=== PATIENT | male | born 1995 | race Caucasian/White ===

== ENCOUNTER → 2025-03-04 | Outpatient (CLI) | payer SELFPAY ==
--- NOTE | 2025-03-04 07:33 | MRI_ITS ---
PROCEDURE: LOWER EXT JOINT ONLY (ROUTINE) 03/04/2025 REASON FOR EXAM: PAIN, EVAL LCL / LM TECHNIQUE: Procedure Code: MRILEJ Modality: MR Procedure: LOWER EXT JOINT ONLY (ROUTINE) Multiplanar and multisequence images were obtained without IV contrast administration. COMPARISON: COMPARISON : None FINDINGS: Bone Marrow: There is a 2.2 x 0.9 cm developing osteochondral defect in the central portion of the lateral femoral condyle with no free fragment, with marrow edema throughout the lateral femoral condyle. There is subcortical edema in the medial tibial plateau and medial femoral condyle. Cruciate ligaments: There is increased T2 signal, with edema and attenuation throughout the anterior cruciate ligament without laxity, grade 2 sprain. The posterior cruciate appears intact. Collateral ligaments: The medial collateral ligament appears intact. The lateral collateral ligament complex appears intact. The extensor compartment. The distal quadriceps and patellar tendons appear intact. Menisci. There is no tear identified in the medial or lateral meniscus. Effusion: There is a trace joint effusion. There is no [place]'s cyst. There is no soft tissue mass or adenopathy. MRI/Lower Ext Joint Only (Routine) IMPRESSION: There is a 2.2 x 0.9 cm developing osteochondral defect in the central portion of the lateral femoral condyle with no free fragment, with marrow edema throughout the lateral femoral condyle. There is subcortical edema in the medial tibial plateau and medial femoral cond yle. There is increased T2 signal, with edema and attenuation throughout the anterio r cruciate ligament without laxity, grade 2 sprain. There is a trace joint effusion. Reading Location: [facility]
--- OUTSIDE RECORDS SUMMARY | 2025-03-04 07:54 | XMS RPT_ITS | CCD ---
Author Organization [facility] Care Team Providers Care Blanchard Grinder Operator Name Role Phone CÉSAR HOWELL Unavailable Unavailable TA MATOS Unavailable Unavailable CÉSAR HOWELL Unavailable Unavailable TA MATOS Unavailable Unavailable Unavailable Primary Care Provider UnavailISA Peña Attending Unavailable SELF Referring Unavailable Lamine Fraga Attending Unavailable Ta Matos Referring Unavailable Ta Matos Primary Care Unavailable Kenji Dubon Attending Unavailable Ta Matos Primary Care Unavailable Lamine Fraga Referring Unavailable Lamine Fraga Attending Unavailable Ta Matos Primary Care Unavailable Allergies Allergy Classification Reported Allergen(s) Allergy Type Date of Onset Reaction(s) Facility (3 sources) penicillin; Translations: [PENICILLIN G] Drug Allergy 5 Rash [facility] Repository (2 sources) OTHER; Translations: [OTHER] Propensity to adverse reactions (disorder) 7 [facility] Repository (1 source) environmental [Other] Propensity to adverse reactions 7 [facility] Work Phone: Medications Current Medications Medication Drug Class(es) Dates Sig (Normalized) Sig (Original) azithromycin 250 mg oral tablet (1 source) Macrolide Antimicrobial Start: 12-17-2024 azithromycin (ZITHROMAX) 250 mg tablet TAKE 2 TABLETS BY MOUTH ON DAY 1, AND THEN TAKE 1 TABLET BY MOUTH ONCE A DAY ON DAY 2 THROUGH DAY 5 12/17/2024 Active escitalopram 5 mg oral tablet (1 source) Serotonin Reuptake Inhibitor Start: 12-06-2024 take 1 tablet by mouth once daily escitalopram oxalate (LEXAPRO) 5 mg tablet Take 1 tablet by mouth once daily. 12/06/2024 Active lidocaine hydrochloride 20 mg/ml mucous membrane topical solution (1 source) Antiarrhythmic, Amide Local Anesthetic Start: 08-30-2015 lidocaine viscous (LIDOCAINE VISCOUS) 2 % solution Indications: Sore throat Gargle and spit 10-15mLs every 3-4 hours as need for throat discomfort. 120 mL 0 08/30/2015 Active loratadine 10 mg oral tablet (1 source) take 1 tablet by mouth once daily loratadine (CLARITIN) 10 mg tablet Take 10 mg by mouth once daily. Active Problems Active Problems Problem Classification Problem Date Documented Da te Episodic/Chronic Other non-traumatic joint disorders (1 source) Pain in right knee; Translations: [Pain in right knee] Onset: 02-27-2025 Episodic Sprains and strains (1 source) Sprain of lateral collateral ligament of right knee, initial encounter; Translations: [Sprain of lateral collateral ligament of right knee, initial encounter] Onset: 02-27-2025 Episodic Viral infection (2 sources) Verruca vulgaris; Translations: [Viral wart, unspecified] Onset: 12-20-2024 12-20-2024 Episodic Past or Other Problems Problem Classification Problem Date Documented Da te Episodic/Chronic Fracture of lower limb (2 sources) Nondisplaced fracture of medial malleolus of left tibia, initial encounter for closed fracture; Translations: [Closed fracture of medial malleolus of left distal tibia] Onset: 06-25-2017 07-01-2017 Episodic Results Test Name Value Interpretation Reference Range Facility Inital Evaluation (1) - PTon 02-27-2025 Inital Evaluation (1) - PT [facility] [address] [place] [address] [address] [place] [id number] / REHABILITATION SERVICES INITIAL EVALUATION MR#: [id number] Acct: [id number] Name: EDGAR CUNHA Rep #: [id number] : 1995 29 From: German Ty PT, ATC Referring Dr.: Dr. Lamine Fraga MD Status: R EG RCR Insurance: SELF PAY INSURANCE Patient's Visit Information Visit Information Visit Information: EDGAR CUNHA is a 29 year old M referred to Physical Therapy by Dr. Lamine Fraga MD with a diagnosis of R LCL sprain. Date of Evaluation: 02/27/25 Physical Therapist: German Ty PT, ATC Visit Plan Frequency: 2-3x /Week Duration: 4-6 Weeks Plan: R knee stretching and strengthening, balance and proprio, core strengthening, sport specific ex's, bike, and HEP Subjective Subjective: Pt reports he sprained his R LCL playing hockey approximately 3 weeks ago. Pt notes he felt like he was getting better, but the pain has plateaued over the past week. Pt reports he continues to have pain when he makes fast movements, but as twisting or turning. Pt notes his R knee is always still sore. 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 Pt reports his knee feels like it wants to give out on him occasionally, but it hasn't at this time. Pt denies sleep difficulty at this time secondary to pain. Pt denies tingling or numbness at this time. Pt reports he has stairs at home as he lives in the basement, and notes he has to use handrails for support. 4/10 pain in R knee while at rest, 8/10 pain at worst. Pain R knee pain: Pain Intensity (Out of 10): 4 Pain Intensity Range: 8 Objective Objective: Neuro: B LE sensation is WNL to light touch. Palpation: Pt is sore along the lateral aspect of R knee. No deformity present at this time. Crepitus with AROM. Girth: B knees are 33 cm ROM: L knee 0-145 degrees, R knee 0-5-130 degrees MMT: L knee flex= 44, ext= 50 #F; R knee flex= 36, ext= 22 #F Balance/Special Test Scores Lower Extremity Functional Score: 41 Goals Goal 1:: Decrease R knee pain x 50% to aid with return to sports without limitation Goal Time Frame: 4-6 Weeks Goal 2:: Increase R knee ROM x 15 degrees to aid with squatting type activity Goal Time Frame: 4-6 Weeks Goal 3:: Increase R knee strength x 15 #F to aid with stair negotiation Goal Time Frame: 4-6 Weeks Goal 4:: I with HEP Goal Time Frame: 4-6 Weeks Rehabilitation Potential Physical Therapy Diagnosis: Pt has R knee pain, weakness, and limited ROM secondary to R LCL sprain. Rehabilitation Potential: Good Anticipated Interventions Patient/Client Instruction: Educate patient on: Condition and Plan of Care For the Purpose of:: To improve self management Therapeutic Exercise to Include: Strength training, Endurance training, Balance training and Dynamic Lumbar Stabilization For the Purpose of:: To decrease pain, To increase ROM and To improve muscle performance and motor function Cryotherapy (ice pack, ice massage): Yes For the Purpose of:: To decrease pain Text: Thank you for the opportunity to evaluate your patient. For Medicare and Medicare HMO plans, please review the plan of care and approve it. It will need to be FAXED BACK to us at [phone] for Medicare purposes. For Medicare only, by signing this I certify the plan of care. Please let me know if there are questions or concerns regarding this plan of care. Physician Signature: Date: 02/27/25 0964 CC: Dr. Ta Matos DO; Dr. Lamine Fraga MD [facility] Signed Normal [facility] Knee 4 or More Viewson 02-26 Knee 4 or More Views [facility] Imaging Services [address] [place], [place] [id number] Knee 4 or More Views MR#: [id number] Acct: [id number] Name: EDGAR CUNHA Rep #: [id number] : 1995 M 29 From: Nancy Aviles MD PCP: Dr. Ta Matos DO Status: DEP AMB Study: Knee 4 or More Views Date of Exam: 02/26/25 Exam# [id number] Ordering Dr: Lamine Fraga MD PROCEDURE: KNEE 4 OR MORE VIEWS 02/26/2025 REASON FOR EXAM: RIGHT KNEE PAIN TECHNIQUE: Procedure Code: RADKN Modality: DX Procedure: KNEE 4 OR MORE VIEWS Laterality: Right COMPARISON: None. FINDINGS: BONES: No acute fracture or focal osseous lesion. JOINTS: No dislocation. The joint spaces are normal. SOFT TISSUES: The soft tissues are unremarkable. RAD/Knee 4 or More Views IMPRESSION: No acute findings. Reading Location: [id number] CC: Dr. Ta Matos DO; Dr. Lamine Fraga MD Reception Clerk: Signed Normal [facility] Orthopedic Visit Reporton Orthopedic Visit Report [facility] [place] [address] OFFICE VISIT Date of Service: 02/26/25 MR#: [id number] Acct: [id number] Name: EDGAR CUNHA Rep #: [id number] : 1995 Provider: Dr. Lamine ha MD Age/Sex: 29/M Location: [facility] Status: Signed Intake Vital Signs 02/26/25 09:59 Height 6 ft Weight: 139 lb 4 oz BMI 18.8 Intake Visit Reasons: knee pain Chief Complaint: Right knee pain Accompanied by: Self Is patient in pain?: Yes Pain scale (1-10): 2 Allergies No Known Allergies Allergy (Unverified 02/26/25 10:02) Medications ???Medication ???Instructions ???Recorded ???Confirmed ???Type escitalopram oxalate 20 mg tablet 20 mg PO QDAY 02/26/25 02/26/25 H istory (Lexapro) Have you fallen in the past year?: Yes [facility] Medical History (Updated 02/26/25 @ 10:36 by Lamine Fraga MD) Sprain of lateral collateral ligament of right knee Right knee pain Surgical History History of ankle surgery Social History Smoking Status: Current some day smoker alcohol intake: never HPI knee pain Details: This documentation accurately reflects the service provided and the decisions made by me, Dr. Lamine Fraga MD 02/26/25 1746. Part of today???s visit was documented by [ ], acting as scribe. EDGAR CUNHA is a 29 year old M here today for R knee pain. 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 Since that time has had lateral sided knee pain worse with bending worse with turning no giving way but feels painful occasionally some catching in the knee. Try to play couple games this week and was still quite painful never had any prior knee problems or surgery. Has been trying rest and some exercises. Supplemental Info Right knee x-rays 4 views taken today show no acute abnormalities joint spaces well-maintained. 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 Some mild laxity of the LCL and pain along that structure could have a sprain to that ligaments or meniscus tear on the lateral side of the knee or even just a bony contusion or soft tissue injury and tendinitis of the biceps femoris. For now rest ice anti-inflammatories gentle range of motion okay to still play I have prescribed him a neoprene type knee brace also put in for physical therapy prescription as well as an urgent right knee MRI follow-up after the test. The patient has a couple weeks off they are on a bye week right now should feel good enough to play on in 2 weeks but we will see how he progresses. (2) Sprain of lateral collateral ligament of right knee: Status: Acute Orders: Orders Knee 4 or More Views Today M25.561 - Pain in right knee Clinical Quality Measures Falls Risk Screening/Assistive Devices Have you fallen in the past year?: Yes Ortho Exam General General: Yes no acute distress Neurologic: Yes alert and Yes oriented x3 Psychologic: Yes reasonable and appropriate Right Knee Skin/Wound: Yes CDI, No erythema, No ecchymosis and No swelling Knee ROM: Yes ROM-Flexion 0-140 Examination: No Med jt line tenderness, Yes Lat jt line tenderness, No TTP inf pole patella, No Crepitus, Yes Pain with flexion, Yes Cecy's Test, No TTP Patellar tendon, No TTP Tibial tubercle, No TTP Pes Anserine and No Illiotibial band tenderness Quad Atrophy: No Stability: NML: Anterior Drawer, NML: Víctor, NML: Posterior Drawer, NML: Valgus 0, NML: Valgus 30 and NML: Varus 0 and 1+: Varus 30 Patella Translation: 2 Apprehension with Lateral Translation: No Patellar Tilt Normal: Yes Patella Grind: No KNEE: NVI, normal gait, normal alignment, pain along the LCL and at the insertion of the biceps femoris onto the proximal fibula. Left Knee Patella Translation: 2 02/26/25 1037 Date Lamine Sevilla Signature: Date (if applicable) CC: Normal [facility] CNOVon 12-20-2024 CNOV Office Visit ([facility]) JIMIEDGAR Connelly ([id number]) 1995 M Date Time Provider Department 12/20/24 8:15 AM ISA SILVA [facility] During your visit today, we recorded the following information about you: Isa Silva PA-C 12/20/2024 8:17 AM Signed NEW PATIENT Chief Complaint: Wart History of Present Illness: Edgar Cunha is a 29 year old male who presents today for a wart C/o wart: Location: Bilateral hands Duration: 6 years Symptoms: Bothersome Current Treatment: None Past Treatment: Salicylic acid liquid Pertinent History: History of skin cancer: No History of atypical nevi: No History of HIV/ Hepatitis C: No History of immunosuppression/organ transplant: No Allergy to lidocaine/ epinephrine/ latex/ adhesive: No Defibrillator/ Pacer: No Pertinent Family Medical History: History of melanoma: No History of non melanoma skin cancer: No Other family history (autoimmune, dermatologic, etc): None Social History: History of severe sun landers: No 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 lidocaine viscous (LIDOCAINE VISCOUS) 2 % solution Gargle and spit 10-15mLs every 3-4 hours as need for throat discomfort. (Patient not taking: Reported on 11/16/2017 ) No current facility-administered medications on file prior to visit. ROS: Skin as above. Physical Exam: Sheldon skin type: II The patient is a pleasant male in no apparent distress. Alert and oriented x 3. A skin exam performed of the bilateral upper extremities is significant for: Left 3rd Finger Distal Interphalangeal Joint, Right 2nd Finger Proximal Interphalangeal Joint Verrucous papule(s) Assessment and Plan: Skin Exam 1. VERRUCA VULGARIS (2) Left 3rd Finger Distal Interphalangeal Joint, Right 2nd Finger Proximal Interphalangeal Joint Verrucous papule(s) Educated and reassured. Treatment options, risks, benefits and expectations reviewed. Patient informed that warts are caused by human papillomavirus (HPV). The virus likely entered the skin through a small cut or lesion on the skin. Warts are contagious and spread by direct skin-skin contact or fomite transmission via door handles, public showers, etc. Treatment options include but are not limited to cryotherapy, topical medications, laser therapy or combinations of these and other treatments. Recommend treatment with LN2 today without paring followed by at home topical wart treatment. Patient agreeable. Cryotherapy Wart(s) Indication: Verruca Vulgaris Medical necessity: Patient informed skin lesions are caused by human papillomavirus (HPV) and there is risk of spreading. Consent: Risks and benefits explained including but not limited to scarring, hypo/hyper pigmentation, blistering at the site, irritation, redness, infection. Although treatment is effective, recurrences do occur and treatment may need repeated multiple times for resolution. Patient/ Patient's parent expresses understanding and is agreeable to plan. Method: warts were treated with liquid nitrogen with two freeze-thaw cycles Complications: none Number treated/ location(s): 1 left 3rd finger, 1 right 2nd finger Post-op instructions: clean the site twice daily with soap and water. Signs of infection reviewed including but not limited to increased redness, pain, swelling, purulent drainage. Patient advised to contact provider/ office if any concerning signs/ symptoms develop. Post-op instructions were given orally and in writing. Follow up: 2-3 week wart follow up The documentation for this note was completed by Julianna Miles MA acting as scribe for Isa Silva PA-C. I agree with the Chief Complaint, ROS, and Past Histories independently gathered by the clinical operator command support systems and the remaining scribed note accurately describes my personal service to the patient. Isa Silva PA-C December 20, 2024 Julianna Miles MA 12/20/2024 8:12 AM Signed WART CARE The area may become dark in color, may blister after the cryotherapy (liquid nitrogen) these are expected and normal reactions. Clean the area with soap and water, then apply vaseline ointment to help the skin heal. At home wart treatment: 1. Soak affected area in warm water for 5 minutes every night (including bath or shower) 2. File down the thick skin on the wart with an emery board. Break off the used section and throw away. - If too painful, may skip this step 3. Apply wart medication carefully only to the surface of warts. Bote-okv-fupwhwk wart (more content not included)... Normal [facility] MAIN OR Intraop Recordon 07-05-2017 [facility] MAIN OR Intraop Record Normal [facility]) Anesthesiology Consultationo n 07-05-2017 Anesthesiology Consultation [facility]) Depart Summaryon 07-05-2017 Depart Summary Normal [facility]) [place] Operative Reporton 07-05-2017 [place] Operative Report Normal [facility]) [place] Out[facility] Patient Summaryon 07-05-2017 [place] [facility] Patient Summary Normal [facility]) XR FLUORO 1-2 HRS TECH TIMEo n 07-05-2017 XR FLUORO 1-2 HRS TECH TIME ORIGINAL Images acquired, not reported on this accession number. Normal [facility] ([place]) ED NOTEon 06-25-2017 ED NOTE HNO ID: [id number] thor: Hans Rich (Rn) JENNYFER Velizervice: (none)Author Type: Registered NurseType: ED NotesFiled: 06/25/2017 9:10 AMNote Text:Emergency Services: ED Call Back QuestionnaireSERVICE DATE: 06/24/2017Are you feeling better? YesAny questions about discharge instructions and follow-up care? NoWere you able to make a follow up appointment? No, referred to appointmenthotlineDo you have any further questions? NoIs there anything that we could have done differently to improve your EDvisit? NoSIGNATURE: Hans Veliz RN PATIENT NAME: Edgar CunhaDATE: June 25, 2017 : 9:10 AM [facility] ED NOTE HNO ID: [id number] thor: Sienna ValdesRn) JENNYFER Vargheseervice: (none)Author Type: Registered NurseType: ED NotesFiled: 06/25/2017 1:33 AMNote Text:Discharge instructions reviewed with patient, verbalized understanding. Nofurther questions at this time. No distress. Pt has follow up appointmentwith orthopedics. Pt understands splint care. [facility] ED NOTE HNO ID: [id number] Author: Sienna (Rn) Halima RN Service: (none) Author Type: Registered Nurse Type: ED Notes Filed: 06/24/2017 11:40 PM Note Text: Ice provided for patient in triage. [facility] ED NOTE HNO ID: [id number] Author: Jesus Connelly (Rn) Erna RN Service: (none) Author Type: Registered Nurse Type: ED Notes Filed: 06/24/2017 11:07 PM Note Text: Bed: ED-16 Expected date: Expected time: Means of arrival: Comments: [facility] ED NOTE HNO ID: [id number] thor: Magdy (Medic) PettayService: (none)Author Type: Pvc Loader and TechnicianType: ED NotesFiled: 06/24/2017 10:47 PMNote Text:Left ankle injury after falling off of the warp wall at [employer]. Ptstates that is it painful to stand on. No deformities noted. Normal [facility] ED PROV NOTEon 06-25-2017 ED PROV NOTE HNO ID: [id number] thor: Whitley Guadarramaervice: Emergency MedicineAuthor Type: Physician AssistantType: ED Provider NotesFiled: 06/25/2017 1:20 AMNote Text:ED Provider NotePatient Name: Edgar CunhaMRN: [id number] DATE: 06/24/17HistoryPatient presents with:Ankle Injury: left ankleHPI Comments: 21-year-old male presents to the ED with right ankle injury. Patient was at [employer] when he was jumping up the "warp wall" and hebent his left ankle landing the wrong way. He does have significant painwith standing. He took 600 mg of ibuprofen and 1000 mg of Tylenol priorto arrival. He denies any other injuries. Specifically no head injury.No weakness or numbness. No other concerns today.History provided by: Patient and parentLanguage full time staff interpreter used: NoPAST MEDICAL HISTORYDiagnosis Date- NEGATIVE MEDICAL HISTORYPAST SURGICAL HISTORYProcedure Laterality Date- CIRCUMCISION,CLAMP, Circumcision, newbornFAMILY HISTORYProblem Relation Age of Onset- Alcohol/Drug Father- Alcohol/Drug Paternal Grandmother- GI Maternal Grandmother- Hearing Loss Maternal Grandfather- Headache Mother- Heart Father- Hypertension Paternal Grandfather- Heart Mother murmurs- Heart Maternal Grandmother murmurs- Heart Maternal GrandfatherSocial HistorySocial History Main Topics- Smoking status: Never Smoker- Smokeless tobacco: None- Alcohol use No- Drug use: No- Sexual activity: Yes Partners: FemaleALLERGIESAllergen Reactions- Penicillin G Rash- Environmental [Othe* seasonal allergiesReview of SystemsConstitutional: Negative.Cardiovascular: Negative.Gastrointestinal: Negative.Musculoskeletal: L ankle injurySkin: Negative for wound.Neurological: Negative.Hematological: Does not bruise/bleed easily.Physical ExamBP 109/56 Pulse 73 Temp (Src) 98.3 (Oral) Resp 16 Wt 150 lb(68.0kg) SpO2 99%Physical ExamConstitutional: He is oriented to person, place, and time. He appearswell-developed and well-nourished. No distress.HENT:Head: Normocephalic and atraumatic.Neck: Normal range of motion.Cardiovascular: Normal rate.Pulmonary/Chest: Effort normal.Musculoskeletal:LLE: No obvious deformity. Tenderness noted to medial malleolus withlocalized ecchymosis and edema. No tenderness over the Achilles. Able towiggle toes. Strength intact. Pedal pulse intact. No sensory deficits.No other concerns today.Neurological: He is alert and oriented to person, place, and time.Psychiatric: He has a normal mood and affect.Nursing note and vitals reviewed.Diagnostic TestingED Labs Ordered and Reviewed - No data to displayProceduresMedical Decision Making / ED CourseED [id number] male presents to the ED with left ankle injury. He twistedhis ankle and landed wrong while jumping off of a [place]" [place] [employer] [place]. Exam is as detailed above. No neurovascular deficits.X-ray shows comminuted fracture of the medial malleolus with slight medialdisplacement of the fracture fragments, without significant dislocation.Patient was given ice here. Declined anything stronger for pain. Patientwas given a posterior splint with sugar tong for support. He has crutchesat home. He was given orthopedic follow-up. Return to ED symptomsexplained.Encounter Diagnosis ICD-10-CM1. Closed nondisplaced fracture of medial malleolus of left tibia, initialencounter S82.55XAPlanThe Patient was DISCHARGED: Counseled patient regarding radiology resultsAND suspected diagnosis AND need for follow-up. Discharged home with verbaland written instructions. They were instructed to return as needed forpersistent or worsening symptoms or any new concerns.Condition at time of disposition: stableSIGNATURE: Ken Rasheed (Caden) Lbcytoq92/10/18 0120 [facility] XR ANKLE 3V AP/LAT/OBL LTon 06-25-2017 XR ANKLE 3V AP/LAT/OBL LT * * *Final Report* * *DATE OF EXAM: Jun 24 2017 11:41PM VHX [id number] - XR ANKLE 3V AP/LAT/OBL LT / REASON: Swelling * * * * Physician Interpretation * * * * XR ANKLE 3V AP/LAT/OBL LTINDICATION: Injury, painCOMPARISON: NoneTECHNIQUE: AP, lateral and oblique views left ankle, 3 films.FINDINGS:Moderate medial soft tissue swelling. Mild lateral soft tissue swelling. Comminuted fracture medial malleolus with slight medial displacement of the fracture fragments. Ankle mortise maintained with no joint dislocation. No other acute fracture identified.IMPRESSION:Commi nuted fracture medial malleolus with slight medial displacement of the fracture fragments.Soft tissue swelling.Reception Clerk: PSCDavid Transcribe Date/Time: Jun 24 2017 11:45PDictated by : JOSE ROWLEY MDThis examination was interpreted and the report reviewed and electronically signed by: JOSE ROWLEY MD on Jun 24 2017 11:47PM [id number] Normal [facility] Encounters Encounter Date Encounter Type Care Provider Facility Start: 02-27-2025 ambulatory [facility] Facility :[facility] Start: 02-26-2025 End: 02-26-2025 ambulatory Rosalia Jagdish Facility:[facility] Start: 12-20-2024 End: 12-20-2024 Patient encounter procedure Isa Silva PA-C Work Phone: Dermatology Abigail Holden Comment on above: Verruca vulgaris (Pr imary Dx) Start: 12-20-2024 End: 12-20-2024 ambulatory ISA SILVA Facility:[facility] Start: 07-05-2017 End: 07-05-2017 Ambulatory CÉSAR HOWELL Facility:B Start: 07-04-2017 End: 07-05-2017 Ambulatory CÉSAR HOWELL Facility:B Start: 06-25-2017 End: 06-25-2017 Emergency department patient visit [facility] Plan of Treatment Date Care Activity Detail Author Start: 01-03-2025 End: 01-03-2025 Patient encounter procedure 01/03/2025 10:00 AM EDT Office Visit Dermatology Abigail Holden [address] [place] [id number] Isa Silva PA-C [address] [place] [address] 2-3 week wart follow up. Dermatology Abigail Holden Comment on above: 2-3 week wart follow up. Start: 12-17-2024 Influenza vaccination Influenza Vacc ine (#1) [facility] Start: 11-22-2016 Urine microalbumin profile DTaP,Tdap,Td Vaccine (7 - Td or Tdap) [facility] Start: 2012 Anxiety Screening Anxiety Screening [facility] Start: 2012 Depression Screening Depression Scre ening [facility] Start: 2012 Hepatitis C screening Hepatitis C Sc reening [facility] Start: 2012 HIV screening HIV Screening [facility] Start: 07-22-2011 HPV Vaccine (3 - Mal e 3-dose series) HPV Vaccine (3 - Male 3-dose series) [facility] Immunizations Immunization Date Immunization Notes Care Provider Fa cility 04-12-2022 influenza virus vacc ine, unspecified formulation Isa Mapel PA-C Work Phone: [facility] 08-26-2015 meningococcal polysaccharide (groups A, C, Y and W-135) diphtheria toxoid conjugate vaccine (MCV4P) IsaUIEvolutionel PA-C Work Phone: [facility] 01-07-2014 influenza, injectabl e, quadrivalent, preservative free Isa Mapel PA-C Work Phone: [facility] 04-29-2011 human papilloma viru s vaccine, quadrivalent Isa Mapel PA-C Work Phone: [facility] 11-20-2010 human papilloma viru s vaccine, quadrivalent Isa Mapel PA-C Work Phone: [facility] 02-04-2010 influenza virus vacc ine, unspecified formulation Isa Mapel PA-C Work Phone: [facility] 01-31-2009 influenza virus vacc ine, live, attenuated, for intranasal use IsaUIEvolutionel PA-C Work Phone: [facility] 02-07-2008 influenza virus vacc ine, live, attenuated, for intranasal use Isa Mapel PA-C Work Phone: [facility] Work Phone: 11-22-2006 Meningococcal, MCV4, unspecified conjugate formulation(groups A, C, Y and W-135) Isa Mapel PA-C Work Phone: [facility] 11-22-2006 tetanus toxoid, redu rosina diphtheria toxoid, and acellular pertussis vaccine, adsorbed Isa Mapel PA-C Work Phone: [facility] Work Phone: 08-06-1999 diphtheria, tetanus toxoids and acellular pertussis vaccine Isa Mapel PA-C Work Phone: [facility] 08-06-1999 measles, mumps and rubella virus vaccine Isa Mapel PA-C Work Phone: [facility] 08-06-1999 poliovirus vaccine, inactivated Isa Mapel PA-C Work Phone: [facility] 01-22-1998 varicella virus vaccine Oumou nique Mapel PA-C Work Phone: [facility] 11-09-1995 diphtheria, tetanus toxoids and acellular pertussis vaccine Isa Mapel PA-C Work Phone: [facility] 11-09-1995 haemophilus influenz ae type b vaccine, HbOC conjugate Isa Mapel PA-C Work Phone: [facility] 08-11-1995 measles, mumps and rubella virus vaccine Isa Mapel PA-C Work Phone: [facility] 05-05-1995 hepatitis B vaccine, pediatric or pediatric/adolescent dosage Isa Mapel PA-C Work Phone: [facility] 02-10-1995 diphtheria, tetanus toxoids and acellular pertussis vaccine Isa Mapel PA-C Work Phone: [facility] 02-10-1995 haemophilus influenz ae type b vaccine, HbOC conjugate Isa Mapel PA-C Work Phone: [facility] 02-10-1995 trivalent poliovirus vaccine, live, oral Isa Mapel PA-C Work Phone: [facility] 1994 trivalent poliovirus vaccine, live, oral Isa Mapel PA-C Work Phone: [facility] 1994 diphtheria, tetanus toxoids and acellular pertussis vaccine Isa Mapel PA-C Work Phone: [facility] 1994 haemophilus influenz ae type b vaccine, HbOC conjugate Isa Mapel PA-C Work Phone: [facility] 1994 diphtheria, tetanus toxoids and acellular pertussis vaccine Isa Mapel PA-C Work Phone: [facility] Work Phone: 1994 haemophilus influenz ae type b vaccine, HbOC conjugate Isa Mapel PA-C Work Phone: [facility] 1994 hepatitis B vaccine, pediatric or pediatric/adolescent dosage Isa Mapel PA-C Work Phone: [facility] 1994 trivalent poliovirus vaccine, live, oral Isa Mapel PA-C Work Phone: [facility] Work Phone: 1994 hepatitis B vaccine, pediatric or pediatric/adolescent dosage Isa Mapel PA-C Work Phone: [facility] Payers Date Payer Category Payer Self-pay 2025 Unknown [id number] 2024 Private Health Insurance [facility] [place] [id number] 2024 Unknown [id number] 2017 Unknown [id number] 2017 Unknown [id number] Unknown [id number] Unknown [id number] Unknown [id number] Social History Date Type Detail [facility] Start: 12-02-2021 Alcoholic beverage intake Curr ent non-drinker of alcohol (finding) [facility] Start: 03-14-2020 End: 12-20-2024 History of Social function [place] [facility] Start: 03-14-2020 End: 12-20-2024 Tobacco use panel [facility] Start: 03-19-2012 National Score (1-10 0), lower number is lower risk 46 [facility] Start: 1994 Sex assigned at Not on file [facility] Instructions 12-20-2024 Patient Instructions Note Date & Type Note Facility 12-20-2024 Instructions Julianna Miles MA - 12/20/2024 8:12 AM EDT Images from the original note were not included. WART CARE The area may become dark in color, may blister after the cryotherapy (liquid nitrogen) these are expected and normal reactions. Clean the area with soap and water, then apply vaseline ointment to help the skin heal. At home wart treatment: 1. Soak affected area in warm water for 5 minutes every night (including bath or shower) 2. File down the thick skin on the wart with an emery board. Break off the used section and throw away. - If too painful, may skip this step 3. Apply wart medication carefully only to the surface of warts. [id number] wart treatments with 40% salicylic acid are preferred. Ask the pharmacist for help. - If the skin becomes to irritated or red, take a break from treatment for 2-3 days and may apply vaseline Store your Mediplast/ Salicylic Acid pad in a ziploc bag so it does not dry out Eugene Talley documented in this encounter [facility] Progress note 12-20-2024 Note Date & Type Note Facility 12-20-2024 Note HNO ID: [id number] Author: ISA SILVA PA-C Service: ? Author Type: Physician Brick Pointer Type: Progress Notes Filed: 12/20/2024 08:17 Note Text: NEW PATIENT Chief Complaint: Wart History of Present Illness: Edgar Cunha is a 29 year old male who presents today for a wart C/o wart: Location: Bilateral hands Duration: 6 years Symptoms: Bothersome Current Treatment: None Past Treatment: Salicylic acid liquid Pertinent History: History of skin cancer: No History of atypical nevi: No History of HIV/ Hepatitis C: No History of immunosuppression/organ transplant: No Allergy to lidocaine/ epinephrine/ latex/ adhesive: No Defibrillator/ Pacer: No Pertinent Family Medical History: History of melanoma: No History of non melanoma skin cancer: No Other family history (autoimmune, dermatologic, etc): None Social History: History of severe sun landers: No 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 lidocaine viscous (LIDOCAINE VISCOUS) 2 % solution Gargle and spit 10-15mLs every 3-4 hours as need for throat discomfort. (Patient not taking: Reported on 11/16/2017 ) No current facility-administered medications on file prior to visit. ROS: Skin as above. Physical Exam: Sheldon skin type: II The patient is a pleasant male in no apparent distress. Alert and oriented x 3. A skin exam performed of the bilateral upper extremities is significant for: Left 3rd Finger Distal Interphalangeal Joint, Right 2nd Finger Proximal Interphalangeal Joint Verrucous papule(s) Assessment and Plan: Skin Exam 1. VERRUCA VULGARIS (2) Left 3rd Finger Distal Interphalangeal Joint, Right 2nd Finger Proximal Interphalangeal Joint Verrucous papule(s) Educated and reassured. Treatment options, risks, benefits and expectations reviewed. Patient informed that warts are caused by human papillomavirus (HPV). The virus likely entered the skin through a small cut or lesion on the skin. Warts are contagious and spread by direct skin-skin contact or fomite transmission via door handles, public showers, etc. Treatment options include but are not limited to cryotherapy, topical medications, laser therapy or combinations of these and other treatments. Recommend treatment with LN2 today without paring followed by at home topical wart treatment. Patient agreeable. Cryotherapy Wart(s) Indication: Verruca Vulgaris Medical necessity: Patient informed skin lesions are caused by human papillomavirus (HPV) and there is risk of spreading. Consent: Risks and benefits explained including but not limited to scarring, hypo/hyper pigmentation, blistering at the site, irritation, redness, infection. Although treatment is effective, recurrences do occur and treatment may need repeated multiple times for resolution. Patient/ Patient's parent expresses understanding and is agreeable to plan. Method: warts were treated with liquid nitrogen with two freeze-thaw cycles Complications: none Number treated/ location(s): 1 left 3rd finger, 1 right 2nd finger Post-op instructions: clean the site twice daily with soap and water. Signs of infection reviewed including but not limited to increased redness, pain, swelling, purulent drainage. Patient advised to contact provider/ office if any concerning signs/ symptoms develop. Post-op instructions were given orally and in writing. Follow up: 2-3 week wart follow up The documentation for this note was completed by Julianna Miles MA acting as scribe for Isa Silva PA-C. I agree with the Chief Complaint, ROS, and Past Histories independently gathered by the clinical operator command support systems and the remaining scribed note accurately describes my personal service to the patient. Isa Silva PA-C December 20, 2024 [facility] History of Present illness Narrative 12-20-2024 Isa Silva PA-C - 12/20/2024 8:02 AM EDT Note Date & Type Note Facility 12-20-2024 History of Presen t illness Narrative NEW PATIENT Chief Complaint: Wart History of Present Illness: Edgar Cunha is a 29 year old male who presents today for a wart C/o wart: Location: Bilateral hands Duration: 6 years Symptoms: Bothersome Current Treatment: None Past Treatment: Salicylic acid liquid Pertinent History: History of skin cancer: No History of atypical nevi: No History of HIV/ Hepatitis C: No History of immunosuppression/organ transplant: No Allergy to lidocaine/ epinephrine/ latex/ adhesive: No Defibrillator/ Pacer: No Pertinent Family Medical History: History of melanoma: No History of non melanoma skin cancer: No Other family history (autoimmune, dermatologic, etc): None Social History: History of severe sun landers: No 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 lidocaine viscous (LIDOCAINE VISCOUS) 2 % solution Gargle and spit 10-15mLs every 3-4 hours as need for throat discomfort. (Patient not taking: Reported on 11/16/2017 ) No current facility-administered medications on file prior to visit. ROS: Skin as above. Physical Exam: Sheldon skin type: II The patient is a pleasant male in no apparent distress. Alert and oriented x 3. A skin exam performed of the bilateral upper extremities is significant for: Left 3rd Finger Distal Interphalangeal Joint, Right 2nd Finger Proximal Interphalangeal Joint Verrucous papule(s) Assessment and Plan: Skin Exam 1. VERRUCA VULGARIS (2) Left 3rd Finger Distal Interphalangeal Joint, Right 2nd Finger Proximal Interphalangeal Joint Verrucous papule(s) Educated and reassured. Treatment options, risks, benefits and expectations reviewed. Patient informed that warts are caused by human papillomavirus (HPV). The virus likely entered the skin through a small cut or lesion on the skin. Warts are contagious and spread by direct skin-skin contact or fomite transmission via door handles, public showers, etc. Treatment options include but are not limited to cryotherapy, topical medications, laser therapy or combinations of these and other treatments. Recommend treatment with LN2 today without paring followed by at home topical wart treatment. Patient agreeable. Cryotherapy Wart(s) Indication: Verruca Vulgaris Medical necessity: Patient informed skin lesions are caused by human papillomavirus (HPV) and there is risk of spreading. Consent: Risks and benefits explained including but not limited to scarring, hypo/hyper pigmentation, blistering at the site, irritation, redness, infection. Although treatment is effective, recurrences do occur and treatment may need repeated multiple times for resolution. Patient/ Patient's parent expresses understanding and is agreeable to plan. Method: warts were treated with liquid nitrogen with two freeze-thaw cycles Complications: none Number treated/ location(s): 1 left 3rd finger, 1 right 2nd finger Post-op instructions: clean the site twice daily with soap and water. Signs of infection reviewed including but not limited to increased redness, pain, swelling, purulent drainage. Patient advised to contact provider/ office if any concerning signs/ symptoms develop. Post-op instructions were given orally and in writing. Follow up: 2-3 week wart follow up The documentation for this note was completed by Julianna Miles MA acting as scribe for Isa Silva PA-C. I agree with the Chief Complaint, ROS, and Past Histories independently gathered by the clinical operator command support systems and the remaining scribed note accurately describes my personal service to the patient. Isa Silva PA-C December 20, 2024 documented in this encounter [facility] Evaluation note Note Date & Type Note Facility Evaluation note Diagnosis Verruca vulgaris- Primary Viral warts, unspecified documented in this encounter [facility] Summary Purpose Family History No Family History Records FoundNo Family History Records FoundNo Family History Records FoundNo Family History Records Found Advance Directives No Advanced Directives Records FoundNo Advanced Directives Records FoundNo Advanced Directives Records FoundNo Advanced Directives Records Found Additional Source Comments (unrecognized sect ion and content) No Status Records FoundNo Status Records FoundNo Status Records FoundNo Status Records Found INFORMATION SOURCE (unrecogn ized section and content) DATE CREATED AUTHOR 10/07/2017 [facility] DATE CREATED AUTHOR AUTHOR'S ORGANIZ ATDK 10/13/2017 [facility] ([place]) DATE CREATED AUTHOR AUTHOR'S ORGANIZ ATION 12/22/2024 [facility] DATE CREATED AUTHOR AUTHOR'S ORGANIZ ATION 02/27/2025 [facility] Source Comments (unrecognize d section and content) In the event this informatio n is protected by the Federal Confidentiality of Alcohol and Drug Abuse Patient Records regulations: The Federal rules restrict any use of the information to criminally investigate or prosecute any alcohol or drug abuse patient.[facility] Reason for Visit (unrecogniz ed section and content) Reason Comments Wart Specialty Diagnoses / Procedures Referred By Contac t Referred To Contact Dermatology / DERMATOLOGY Diagnoses Wart WART ON FINGER Procedures OFFICE/OUTPATIENT NEW MODERATE MDM 45 MINUTES OFFICE/OUTPATIENT NEW HIGH MDM 60 MINUTES NEW DPSI WART Self Isa Silva PA-C [address] [place] [address] Phone: tel: fax: Referral ID Status Reason Start Date Expiration Date Visits Re quested Visits Authorized [id number] Closed 12/18/2024 04/17/2025 1 1 FOR RECORDS PERTAINING TO PATIENTS WHO ARE OR HAVE BEEN ENROLLED IN A CHEMICAL DEPENDENCY/SUBSTANCEABUSE PROGRAM, SOME INFORMATION MAY BE OMITTED. This clinical summary was aggregated from multiple sources. Caution should be exercised in using it in the provision of clinical care. This summary normalizes information from multiple sources, and as a consequence, information in this document may materially change the coding, format and clinical context of patient data. In addition, data may be omitted in some cases. CLINICAL DECISIONS SHOULD BE BASED ON THE PRIMARY CLINICAL RECORDS. [facility]. provides no warranty or guarantee of the accuracy or completeness of information in this document.
== END | disposition home or self-care (01) ==
LOC: OPMRI 07:32
PROVIDERS: PCP Pediatrics; Referring Provider Orthopaedic Surgery Sports Medicine; Visit Provider Orthopaedic Surgery Sports Medicine
DX: S83.421A Sprain of lateral collateral ligament of right knee, initial encounter (principal); M25.561 Pain in right knee
CPT/HCPCS: 73721

== ENCOUNTER 2025-03-25 13:00 | Outpatient (RCR) | payer SELFPAY ==
--- NOTE | 2025-02-27 13:54 | HP.PTEVAL ---
Patient's Visit Information Visit Information Visit Information: CIRILO KRAUSE is a 29 year old M referred to Physical Therapy by Dr. Lamine Fraga MD with a diagnosis of R LCL sprain. Date of Evaluation: 02/27/25 Physical Therapist: German yT, PT, ATC Visit Plan Frequency: 2-3x /Week Duration: 4-6 Weeks Plan: R knee stretching and strengthening, balance and proprio, core strengthening, sport specific ex's, bike, and HEP Subjective Subjective: Pt reports he sprained his R LCL playing hockey approximately 3 weeks ago. Pt notes he felt like he was getting better, but the pain has plateaued over the past week. Pt reports he continues to have pain when he makes fast movements, but as twisting or turning. Pt notes his R knee is always still sore. 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 Pt reports his knee feels like it wants to give out on him occasionally, but it hasn't at this time. Pt denies sleep difficulty at this time secondary to pain. Pt denies tingling or numbness at this time. Pt reports he has stairs at home as he lives in the basement, and notes he has to use handrails for support. 4/10 pain in R knee while at rest, 8/10 pain at worst. Pain R knee pain: Pain Intensity (Out of 10): 4 Pain Intensity Range: 8 Objective Objective: Neuro: B LE sensation is WNL to light touch. Palpation: Pt is sore along the lateral aspect of R knee. No deformity present at this time. Crepitus with AROM. Girth: B knees are 33 cm ROM: L knee 0-145 degrees, R knee 0-5-130 degrees MMT: L knee flex= 44, ext= 50 #F; R knee flex= 36, ext= 22 #F Balance/Special Test Scores Lower Extremity Functional Score: 41 Goals Goal 1:: Decrease R knee pain x 50% to aid with return to sports without limitation Goal Time Frame: 4-6 Weeks Goal 2:: Increase R knee ROM x 15 degrees to aid with squatting type activity Goal Time Frame: 4-6 Weeks Goal 3:: Increase R knee strength x 15 #F to aid with stair negotiation Goal Time Frame: 4-6 Weeks Goal 4:: I with HEP Goal Time Frame: 4-6 Weeks Rehabilitation Potential Physical Therapy Diagnosis: Pt has R knee pain, weakness, and limited ROM secondary to R LCL sprain. Rehabilitation Potential: Good Anticipated Interventions Patient/Client Instruction: Educate patient on: Condition and Plan of Care For the Purpose of:: To improve self management Therapeutic Exercise to Include: Strength training, Endurance training, Balance training and Dynamic Lumbar Stabilization For the Purpose of:: To decrease pain, To increase ROM and To improve muscle performance and motor function Cryotherapy (ice pack, ice massage): Yes For the Purpose of:: To decrease pain Text: Thank you for the opportunity to evaluate your patient. For Medicare and Medicare HMO plans, please review the plan of care and approve it. It will need to be FAXED BACK to us at [phone] for Medicare purposes. For Medicare only, by signing this I certify the plan of care. Please let me know if there are questions or concerns regarding this plan of care. Physician Signature: Date:
--- NOTE | 2025-05-13 10:36 | HP.PT.NRP ---
Patient Information Patient Information: CIRILO KRAUSE was seen in my office for initial evaluation on 02/27/25. The following Plan of Care was established for this patient: POC Established Initial Frequency: 2-3x /Week Initial Duration: 4-6 Weeks Anticipated Interventions Patient/Client Instruction: Educate patient on: Condition and Plan of Care For the Purpose of:: To improve self management Therapeutic Exercise to Include: Strength training, Endurance training, Balance training and Dynamic Lumbar Stabilization For the Purpose of:: To decrease pain, To increase ROM and To improve muscle performance and motor function Cryotherapy (ice pack, ice massage): Yes For the Purpose of:: To decrease pain Last Seen Last Seen: This patient was last seen in our office . Pertinent comments regarding their Physical therapy will appear below: Pt has not returned in greater than 30 days and is discontinued at this time. At this point I will be discontinuing this patient from physical therapy. I would be happy to see this patient again in the future if found appropriate by the physician. Thank you! German Ty, PT, ATC Balance/Gait/Functional tests Balance/Special Test Scores Lower Extremity Functional Score: 41
== END 2025-03-25 19:00 | disposition home or self-care (01) ==
LOC: PT 13:00
PROVIDERS: PCP Pediatrics; Referring Provider Orthopaedic Surgery Sports Medicine; Visit Provider Orthopaedic Surgery Sports Medicine
DX: S83.421D Sprain of lateral collateral ligament of right knee, subsequent encounter (principal); M25.561 Pain in right knee
CPT/HCPCS: 97110; 97161